=== PATIENT | male | born 1940 | race Caucasian/White ===

== ENCOUNTER 2022-12-31 11:57 | Emergency (ER) | payer MEDICAID ==
[~2022-12-31] VITALS: Ht 165.1 cm; Wt 68.0 kg
[2022-12-31 12:00] VITALS: BP_SYST 132
[2022-12-31 13:38] LABS: BASOPHILS # (AUTO) 0.1 K/uL (0.0-0.2); BASOPHILS % (AUTO) 0.7 % (0.0-2.0); EOSINOPHILS # (AUTO) 0.2 K/uL (0.0-0.4); EOSINOPHILS % (AUTO) 2.2 % (0.0-4.0); HEMATOCRIT 36.8 % (36-54); HEMOGLOBIN 12.2 g/dL (14.0-18.0); LYMPHOCYTES # (AUTO) 1.5 K/uL (1.0-5.5); LYMPHOCYTES % (AUTO) 18.1 % (20.5-51.5); MEAN CORPUSCULAR HEMOGLOBIN 30 pg (27-31); MEAN CORPUSCULAR HGB CONC 33 % (32-36); MEAN CORPUSCULAR VOLUME 90 fL (79.0-98.0); MONOCYTES # (AUTO) 0.8 K/uL (0.0-1.0); MONOCYTES % (AUTO) 9.5 % (1.7-9.3); NEUTROPHILS # (AUTO) 5.8 K/uL (1.8-7.7); NEUTROPHILS % (AUTO) 69.5 % (40.0-70.0); PLATELET COUNT (AUTO) 211 K/uL (130-430); RED BLOOD CELL COUNT(AUTO) 4.07 MIL/uL (4.2-6.2); RED CELL DISTRIBUTION WIDTH 16.6 % (9.0-15.0); WHITE BLOOD COUNT (AUTO) 8.3 K/uL (4.8-10.8)
[2022-12-31 13:52] LABS: ANION GAP 8 (5-15); CALCIUM 7.9 mg/dL (8.4-11.0); CHLORIDE 104 mmol/L (98-107); CREATININE 1.83 mg/dL (0.55-1.30); GLUCOSE 85 mg/dL (70-99); UREA NITROGEN, BLOOD 26 mg/dL (8-21)
[2022-12-31 14:05] LABS: ALANINE AMINOTRANSFERASE 16 U/L (12-78); ALBUMIN 2.7 g/dL (3.4-4.8); ASPARTATE AMINOTRANSFERASE 10 U/L (10-37); THYROID STIMULATING HORMONE 23.16 uIu/mL (0.34-4.82); TOTAL BILIRUBIN 0.4 mg/dL (0.0-1.0)
[2022-12-31] MEDS ORDERED: cefTRIAXone 1 GM IVPB PREMIX 50 ML IV ONE (14:45)
[2022-12-31] MEDS ORDERED: AZITHROMYCIN 500 MG in NS 250 ML IV ONE (14:45)
[2022-12-31] MEDS ORDERED: 0.45% NACL 1,000 ML IV SCH (15:30)
[2022-12-31] MEDS ORDERED: DICL100G33 TP (16:31)
[2022-12-31] MEDS ORDERED: ATOR10TA68 PO (16:31)
[2022-12-31] MEDS ORDERED: CHOL200075 PO (16:31)
[2022-12-31] MEDS ORDERED: CALC-17 PO (16:31)
[2022-12-31] MEDS ORDERED: ATEN-41 PO (16:31)
[2022-12-31] MEDS ORDERED: LEVO50TA8 PO (16:31)
[2022-12-31 17:27] VITALS: BP_SYST 116
[2022-12-31] MEDS ORDERED: IPRATROPIUM/ALBUTEROL SULFATE 3 ML AMPUL.NEB (DUONEB) INH SCH (19:00)
[2022-12-31 19:49] VITALS: BP_SYST 141
[2023-01-01] MEDS ORDERED: AZITHROMYCIN 500 MG in NS 250 ML IV SCH (17:00)
[2023-01-01] MEDS ORDERED: cefTRIAXone 1 GM IVPB PREMIX 50 ML IV SCH (17:00)
== END 2022-12-31 22:51 | disposition left against medical advice (07) ==
LOC: SED 11:57 → UNDOADMIN 15:25 → STU 15:25 → UNDODISIN 22:59
DX: I95.89 Other hypotension (principal); J18.9 Pneumonia, unspecified organism; E86.0 Dehydration; I10 Essential (primary) hypertension; E78.5 Hyperlipidemia, unspecified; Z79.899 Other long term (current) drug therapy; Z20.822 Contact with and (suspected) exposure to COVID-19
CPT/HCPCS: 80053; 84443; 85025; 87040; 36415; 93005; 71045; 71250; 76376; 94640; 94760; 99285; 96365; 96367; 83605; 87426; J0456; J0696; J7050; G0378